=== PATIENT | female | born 1985 | race Caucasian/White ===

== ENCOUNTER 2020-08-24 07:06 | Emergency (ER) | payer OTHER ==
[~2020-08-24] VITALS: Ht 160 cm; Wt 66.4 kg
[2020-08-24] MEDS ORDERED: ACETAMINOPHEN 500 MG TAB PO ONE (08:10)
[2020-08-24] MEDS ORDERED: NS 1,000 ML IV ONE (08:10)
[2020-08-24 09:14] LABS: CK-MB VALUE MASS < 1.0 NG/ML (<3.6); CPK CREATINE PHOSPHOKINASE 77 U/L (26-192); TROPONIN I < 0.02 NG/ML (< 0.10)
[2020-08-24 09:51] VITALS: BP 124/76
--- NOTE | 2020-08-25 08:04 | ECGEPIP ---
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
== END 2020-08-24 09:57 | disposition home or self-care (01) ==
LOC: M ED 07:06
DX: R21 Rash and other nonspecific skin eruption (principal); T50.Z95A Adverse effect of other vaccines and biological substances, initial encounter; X58.XXXA Exposure to other specified factors, initial encounter; Y92.89 Other specified places as the place of occurrence of the external cause; F33.9 Major depressive disorder, recurrent, unspecified; F41.9 Anxiety disorder, unspecified; F90.9 Attention-deficit hyperactivity disorder, unspecified type

== ENCOUNTER 2021-06-08 02:01 | Emergency (ER) | payer OTHER ==
[~2021-06-08] VITALS: Ht 160 cm; Wt 73.4 kg
[2021-06-08] MEDS ORDERED: PROZ40CA PO (02:05)
[2021-06-08] MEDS ORDERED: ADDE20CA3 PO (02:05)
[2021-06-08] MEDS ORDERED: LORA-622 PO (02:05)
[2021-06-08 03:27] LABS: RSV AMPLIFICATION NEGATIVE (NEGATIVE)
[2021-06-08 07:29] VITALS: O2SAT 97
[2021-06-08 07:55] VITALS: BP 122/64
== END 2021-06-08 07:55 | disposition home or self-care (01) ==
LOC: M ED 02:01
DX: J02.9 Acute pharyngitis, unspecified (principal); B34.8 Other viral infections of unspecified site; F90.9 Attention-deficit hyperactivity disorder, unspecified type; Z91.048 Other nonmedicinal substance allergy status; Z79.899 Other long term (current) drug therapy

== ENCOUNTER → 2023-06-30 | Outpatient (CLI) | payer OTHER ==
[~2023-06-30] MED LIST: ADDE20CA3 PO; LORA-622 PO; PROZ40CA PO
== END ==
LOC: M CARPUL 15:24
PROVIDERS: ATTEND Physician Assistant
DX: R06.00 Dyspnea, unspecified (principal)

== ENCOUNTER → 2023-09-01 | Outpatient (CLI) | payer OTHER ==
[~2023-09-01] MED LIST changes: +METHACHOLINE KIT (6 VIAL.NEB PREMIX) INH ONE
== END ==
LOC: M CARPUL 07:27
PROVIDERS: ATTEND Physician Assistant
DX: R06.00 Dyspnea, unspecified (principal)
CPT/HCPCS: 94070; J7674

== ENCOUNTER → 2024-09-24 | Outpatient (CLI) | payer OTHER ==
[~2024-09-24] MED LIST changes: -METHACHOLINE KIT (6 VIAL.NEB PREMIX) INH ONE
== END ==
LOC: M PLARAD 08:05
PROVIDERS: ATTEND Family Medicine
DX: G43.709 Chronic migraine without aura, not intractable, without status migrainosus (principal); E34.8 Other specified endocrine disorders; J34.1 Cyst and mucocele of nose and nasal sinus